=== PATIENT | male | born 1980 | race Caucasian/White ===

== ENCOUNTER 2021-10-20 17:04 | Emergency (ER) | payer BC, OTHER ==
[~2021-10-20] VITALS: Ht 180.3 cm; Wt 97.1 kg
[2021-10-20 17:12] VITALS: BP 141/100
[2021-10-20 18:12] LABS: APPEARANCE,URINE CLEAR (CLEAR); BILIRUBIN,URINE NEGATIVE (NEGATIVE); BLOOD, URINE NEGATIVE (NEGATIVE); COLOR,URINE YELLOW (YELLOW); LEUKOCYTE ESTERASE ,URINE NEGATIVE (NEGATIVE); NITRITE, URINE NEGATIVE (NEGATIVE); UGLUCOSE NEGATIVE (NEGATIVE)
--- NOTE | 2021-10-20 23:27 | NUR ---
Andrade - [facility]
--- NOTE | 2021-10-20 23:29 | NUR ---
PATIENT ELOPED FROM FACILITY. DISCHARGE INSTRUCTIONS NOT GIVEN TO PATIENT. DR. BERMUDEZ NOTIFIED.
== END 2021-10-20 23:37 | disposition left against medical advice (07) ==
LOC: MED 17:04
DX: N50.82 Scrotal pain (principal)
CPT/HCPCS: 76870; 81003; 99284; Q0092